=== PATIENT | male | born 1985 | race Caucasian/White ===

== ENCOUNTER 2023-07-10 11:17 | Outpatient (REF) | payer BC, SELFPAY ==
[2023-07-10 15:47] LABS: Abs Immature Grans 0.02 10^3/uL (0.0-0.06); Absolute Basophil Count 0.06 10^3/uL (0.0-0.2); Absolute Eosinophil Count 0.18 10^3/uL (0.0-0.7); Absolute Lymphocyte Count 2.45 10^3/uL (1.2-3.4); Absolute Monocyte Count 0.48 10^3/uL (0.1-0.8); Absolute Neutrophil Count 1.89 10^3/uL (1.2-6.7); Basophils % 1.2; Eosinophils % 3.5; HCT 41.8 % (40.0-50.0); HGB 14.9 g/dL (13.5-17.5); Immature Grans % 0.4; Lymphocytes % 48.2; MCH 33.6 pg (27.0-33.0); MCHC 35.6 % (32.0-36.0); MCV 94 fL (80-95); MPV 9.9 fL (8.0-11.0); Monocytes % 9.4; Neutrophils % 37.3; Platelet Count 243 10^3/uL (130-400); RBC 4.44 10^6/uL (4.36-5.78); RDW 11.5 % (11.8-14.1); RDW-SD 40.1 fL; WBC 5.08 10^3/uL (4.4-10.8)
[2023-07-10 16:29] LABS: ALT 72 U/L (16-63); AST 33 U/L (15-37); Albumin 4.1 g/dL (3.4-5.0); Alkaline Phosphatase 91 U/L (46-116); Anion Gap 11.8 mmol/L (3-11); BUN 13 mg/dL (7-18); Bilirubin, Total 0.4 mg/dL (0.2-1.0); CO2 26.2 mmol/L (21.0-32.0); CREATININE 0.8 mg/dL (0.70-1.30); Calcium 9.5 mg/dL (8.5-10.1); Calculated LDL 176 mg/dL (<100); Chloride 104 mmol/L (98-107); Cholesterol 292 mg/dL (<200); Estimated GFR 117.63 (mL/min/1.73m2); Glucose 94 mg/dL (74-106); HDL Cholesterol 86 mg/dL (40-60); Sodium 142 mmol/L (136-145); TSH (W/Ref FT4) 1.91 uIU/mL (0.36-3.74); Total Protein 7.6 g/dL (6.4-8.2); Triglyceride 153 mg/dL (<150)
== END 2023-07-10 11:18 | disposition home or self-care (01) ==
LOC: LBN 11:17
PROVIDERS: PCP Nurse Practitioner; Referring Provider Nurse Practitioner; Visit Provider Nurse Practitioner
DX: R63.5 Abnormal weight gain (principal); R06.09 Other forms of dyspnea; J45.909 Unspecified asthma, uncomplicated; Z13.220 Encounter for screening for lipoid disorders
CPT/HCPCS: 80053; 80061; 84443; 85025

== ENCOUNTER → 2023-08-14 01:27 | Outpatient (CLI) | payer BC, SELFPAY ==
--- NOTE | 2023-08-14 07:15 | DI.RAD_ITS ---
Exam(s) XR CHEST 2V PA LATERAL EXAM: XR CHEST 2V PA LATERAL CLINICAL HISTORY: DYSPNEA ON EXERTION TECHNIQUE: 2D digital imaging was performed. COMPARISON: No exams were available for comparison FINDINGS: HEART: Normal size. Aorta: Not dilated. PULMONARY VASCULATURE: Normal. LUNGS: Clear. PLEURAL SPACE: No pleural effusion or pneumothorax. BONE:Unremarkable for age. IMPRESSION: No acute abnormality. DATA REPOSITORY: RADIATION DOSE DELIVERED:
--- NOTE | 2023-08-14 07:30 | DI.US_ITS ---
APPROVED REPORT EXAM: Comprehensive 2D, Doppler, and color-flow Echocardiogram Patient Location: Out-Patient Nurse Transition: Giselle Alexandra RDCS (AE) Indications: Dyspnea on exertion, Racing heart with exertion Other Information Study Quality: Adequate Conclusion Normal left ventricular wall thickness and chamber size. Ejection fraction is 60%. Wall motion is n ormal Normal right ventricular size and systolic function Both atria are normal in size There is no structural or hemodynamically significant valvular disease Estimated right ventricular systolic pressure is 22 mmHg Wall motion Left Ventricle The left ventricle is normal size. The left ventricular systolic function is normal. The left ventric ular ejection fraction is within the normal range. There is normal left ventricular wall thickness. T here is normal LV segmental wall motion. There is no ventricular septal defect visualized. LVEF is 60 %. Right Ventricle The right ventricle is normal size. The right ventricular systolic function is normal. Atria The left atrium size is normal. The right atrium size is normal. The interatrial septum is intact wit h no evidence for an atrial septal defect. Aortic Valve The aortic valve is normal in structure. There is no aortic valvular stenosis. No aortic regurgitatio n is present. Mitral Valve The mitral valve is normal in structure. No evidence of mitral valve stenosis. Trace mitral regurgita tion. Tricuspid Valve The tricuspid valve is normal in structure. There is no tricuspid valve stenosis. Trace tricuspid reg urgitation. The RVSP is 22.5mmHg. Pulmonic Valve The pulmonary valve is normal in structure. There is no pulmonic valvular stenosis. There is no pulmo ruth valvular regurgitation. Great Vessels The aortic root is normal in size. Ascending aorta is not well visualized. Aortic arch is not well vi sualized. IVC is normal in size and collapses >50% with inspiration. Pericardium There is no pericardial effusion. 2D Dimensions IVSD d PLAX 0.95 cm M: 0.6-1.2 Ao Root d 3.52 cm M: 3.1 - 3.7 LVPW d PLAX 0.94 cm M: 0.6 - 1.2 LVID d PLAX 4.87 cm M: 4.2 - 5.8 LVDs 3.37 cm M: 2.5 - 4.0 LV EF Teichholz 58.3 % FS 30.85 % LV EDV (Teich) 111.2 mL LV ESV (Teich) 46.3 mL M-Mode TAPSE 1.96 cm (M/F) >1.7 Auto EF LV EDV A4C 147.6 mL LV EDV A2C 164.4 mL LV EDV BP 158.4 mL LV ESV A4C 64.8 mL LV ESV A2C 74.1 mL LV ESV BP 70.9 mL LVEF(%) A4C 56.1 % LVEF(%) A2C 54.9 % LVEF(%) BP 55.2 % LV SV A4C 82.8 ml LV SV A2C 90.3 ml LV SV BP 87.5 ml LV CO A4C 5.1 L/min LV CO A2C 5.7 L/min LV CO BP 5.4 L/min HR A4C 61.23 BPM HR A2C 63.47 BPM LV EDV Index (BP) LA Volume LA Length A4C 4.2 cm LA Length A2C 4.5 cm LA Area A4C s 13.09 cm2 LA Area A2C s 14.89 cm2 LA Vol A4C A-L 34.60 mL LA Vol A2C A-L 42.12 mL LA Vol Biplane A-L 39.4 mL LA Vol/BSA A4C A-L LA Vol/BSA A2C A-L LA Vol/BSA BP A-L 109.3 mL/m2 LA Vol A4C MOD 30.3 mL LA Vol A2C MOD 39.0 mL LA Vol BP MOD 35.3 mL RA Volume RA Area A4C 11.0 cm2 RA ESV A4C (A-L) 26.4mL RA Vol/BSA A4C A-L RA Length A4C 3.9 cm RA ESV A4C (MOD) 25.0mL LV Diastology MV E' medial 0.097 (>0.07 m/s) MV E Vmax 0.68 (0.4-1.3 m/s) MV E/E' MED 7.03 (<14) MV A Vmax 0.60 (0.4-1.3 m/s) MV E' lateral 0.108 (>0.1 m/s) E/A Ratio 1.1 MV E/E' LAT 6.33 (<14) MV E' Average 0.103 m/s MV E/E'(average) 6.66 Aortic Valve AoV Vmax 1.09 m/s LVOT Vmax 1.01 m/s AoV Peak Grad 4.7 mmHg LVOT Peak Grad 4.1 mmHg AoV Area (Vmax) 3.49 cm2 LVOT VTI 0.204 m AoV VTI 0.232 m LVOT Mean Grad 2.3 mmHg AoV Mean Vadim. 0.79 m/s LVOT SV 76.40 mL AoV Mean Grad 2.8 mmHg LVOT Diam s 2.15 cm AoV Area (VTI) 3.29 cm2 Velocity Ratio 0.93 Mitral Valve MV DT 221 (160-240 msec) Pulmonary Valve PV Vmax 0.84 (0.5-1.5 m/s) RVOT Vmax 0.71 m/s PV Peak Grad 2.8 mmHg RVOT Peak Gr. 2.0 mmHg PV Mean Vadim 0.64 m/s RVOT VTI 0.147 m PV Mean Grad 1.8 mmHg RVOT Mean Gr. 1.1 mmHg Tricuspid Valve RA Pressure 3.00 mmHg TR Vmax 2.21 m/s TV S' 0.11 m/s TR Peak Grad 19.4 mmHg RVSP (TR) 22.5 mmHg
== END ==
PROVIDERS: PCP Nurse Practitioner; Visit Provider Nurse Practitioner
DX: R06.09 Other forms of dyspnea (principal)
CPT/HCPCS: 71046; 93306

== ENCOUNTER 2024-02-25 15:53 | Outpatient (CLI) | payer BC, SELFPAY ==
--- NOTE | 2024-02-25 14:15 | DI.RAD_ITS ---
Exam(s) XR SHOULDER RT COMPLETE 2+V EXAM: XR SHOULDER RT COMPLETE 2+V CLINICAL HISTORY: RIGHT SHOULDER PAIN. TECHNIQUE: 2D digital imaging was performed of the right shoulder. Two images were obtained. Grash ey and axillary views were obtained. COMPARISON: CR XR CHEST 2V PA LATERAL from 08/14/2023 FINDINGS: BONES: No acute fracture is present. No bony destructive lesion is seen. JOINTS: The glenohumeral joint is well maintained. There is elevation of the clavicle relative to th e acromion suggesting AC separation. There is chronic ossification projecting from the inferior aspe ct of the mid clavicle. SOFT TISSUE: The visualized lung medeiros are clear. IMPRESSION: 1. Deformity of the right AC joint suggesting separation. Please correlate with clinical history for acuity. 2. No acute fracture. DATA REPOSITORY: RADIATION DOSE DELIVERED:
== END 2024-02-25 15:54 | disposition home or self-care (01) ==
LOC: DIORS 15:53
PROVIDERS: PCP Nurse Practitioner; Visit Provider Student in an Organized Health Care Education/Training Program
DX: M25.511 Pain in right shoulder (principal)
CPT/HCPCS: 73030

== ENCOUNTER → 2024-03-16 02:43 | Outpatient (CLI) | payer BC, SELFPAY ==
--- NOTE | 2024-03-16 06:45 | DI.MRI_ITS ---
Exam(s) MR UPPER JOINT RT WO EXAM: MR UPPER JOINT RT WO CLINICAL HISTORY: R SHOULDER INJURY,separation of rt ac joint,S43.101a. TECHNIQUE: Multiplanar multisequence MRI was performed. COMPARISON: CR XR SHOULDER RT COMPLETE 2+V from 02/25/2024 FINDINGS: BONES: There is no fracture or contusion pattern. Small subchondral cysts seen in the humerus. JOINTS: There is a 1.8 cm osseous fragment at the anterior aspect of the distal clavicle at the acrom ioclavicular joint which appears old. There is normal marrow signal seen in the distal clavicle and acromion. No findings to suggest an acute fracture. There is a cyst seen in the distal clavicle. T here is no edema seen in the soft tissues around the acromioclavicular joint. The distal clavicle is superiorly located relative to the glenoid. The soft tissues surrounding the acromioclavicular join t are unremarkable. This is likely chronic. The glenohumeral joint is normal. TENDONS: Supraspinatus: Mild tendinosis of the supraspinatus tendon. No evidence of a full-thickness tear. Infraspinatus: Unremarkable. Subscapularis: Unremarkable. Teres Minor: Unremarkable. Biceps and [place]: Unremarkable. MUSCLES: Unremarkable. GLENOID LABRUM: There is mild hyperintense signal seen in the posterior aspect of the superior labrum . SOFT TISSUES: Unremarkable. LIGAMENTS: There is no evidence of an acute AC joint ligament tear. The cortical clavicular ligament s are intact. OTHER: Subacromial and subdeltoid bursae are unremarkable. IMPRESSION: 1. AC joint separation which appears chronic. There is some fragmentation of the distal clavicle whi ch appears old. No evidence of an acute fracture. 2. Supraspinatus tendinosis. No evidence of a full-thickness tear. 3. Mild hyperintense signal seen in the posterior superior labrum. This may represent degeneration o r tear. DATA REPOSITORY:
== END ==
PROVIDERS: PCP Nurse Practitioner; Visit Provider Student in an Organized Health Care Education/Training Program
DX: S43.121D Dislocation of right acromioclavicular joint, 100%-200% displacement, subsequent encounter (principal); X58.XXXD Exposure to other specified factors, subsequent encounter
CPT/HCPCS: 73221